=== PATIENT | female | born 1965 | race Asian ===

== ENCOUNTER 2016-11-14 12:12 | Outpatient (CLI) | payer OTHER | END 2016-11-14 12:13 | disposition home or self-care (01) | DX: M43.16 Spondylolisthesis, lumbar region (principal) ==

== ENCOUNTER 2016-12-10 17:07 | Outpatient (CLI) | payer OTHER | END 2016-12-10 17:08 | disposition home or self-care (01) | DX: M47.896 Other spondylosis, lumbar region (principal); M43.16 Spondylolisthesis, lumbar region; M51.86 Other intervertebral disc disorders, lumbar region ==

== ENCOUNTER 2017-04-23 16:04 | Outpatient (CLI) | payer OTHER ==
--- NOTE | 2017-05-01 18:31 | Mammography Report ---
DIGITAL SCREENING MAMMOGRAM: 04/23/2017 CLINICAL INDICATION: A 51-year-old with bilateral implants, history of benign biopsy for screening. COMPARISON: Films from [facility] dated 03/11/2014, 07/08/2013, 12/29/2012, 2012, 07/30/2012, 07/25/2012, 06/07/2012, 05/25/2009. TECHNIQUE: Routine CC and MLO projections were obtained of the breasts. FINDINGS: The breasts again demonstrate heterogeneously dense fibroglandular parenchyma bilaterally. Postbiopsy changes in the right upper outer central breast are stable, with marker in place. Punct ate, typically benign calcifications are present bilaterally. Bilateral saline implants are stable. No suspicious masses, clustered microcalcifications, or regions of architectural distortion are iden tified. IMPRESSION: BENIGN FINDINGS. RECOMMENDATION: Routine annual screening unless otherwise clinically indicated. BI-RADS category 2, benign findings. STANDARD QUALIFYING STATEMENTS 1. This examination was reviewed with the aid of Computer-Aided Detection (CAD). 2. A negative or benign imaging report should not delay biopsy if clinically suspicious findings are present. Consider surgical consultation if warranted. More than 5% of cancers are not identified by i maging. 3. Dense breasts may obscure an underlying neoplasm. JOB #: [id number] EXT JOB #:[id number]
== END 2017-04-23 16:05 | disposition home or self-care (01) ==
LOC: DI.N 16:04
PROVIDERS: ATTEND Family Medicine
DX: Z12.31 Encounter for screening mammogram for malignant neoplasm of breast (principal); Z98.82 Breast implant status
CPT/HCPCS: 77067

== ENCOUNTER 2017-05-15 15:24 | Outpatient (CLI) | payer OTHER | END 2017-05-15 15:25 | disposition critical access hospital (66) | LOC: EMS 15:24 | PROVIDERS: ATTEND Surgery | DX: R55 Syncope and collapse (principal) | CPT/HCPCS: A0425; A0427 ==

== ENCOUNTER 2017-05-15 15:50 | Emergency (ER) | payer OTHER ==
--- NOTE | 2017-05-15 16:26 | ED Physician Documentation ---
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 She did become lightheaded dizzy nauseous and diaphoretic. Her blood sugar was 87 at the time medics arrived and they did find her to have a low-grade fever. She was stung by a bee yesterday in the under the left armpit and she has some swelling associated with that. She does note that today she has had 2 things to drink a warm smoothly and 6 ounces of soy milk at lunch and she did not have her usual morning snack as they were involved in a long procedure. The patient states that she was involved in a long procedure again this afternoon and this is when she began to feel ill. She denies feeling ill yesterday and did her usual yoga with her usual stamina. She denies any other recent illness. Review of Systems Constitutional: reports: Fever, Fatigue, Sweats Eyes: denies: Decreased vision Ears: denies: Ear pain Nose: denies: Rhinorrhea / runny nose, Congestion Throat: denies: Sore throat Cardiac: denies: Chest pain / pressure, Palpitations Respiratory: denies: Dyspnea, Cough GI: denies: Abdominal Pain, Nausea, Vomiting, Constipation, Diarrhea : denies: Dysuria, Frequency Skin: denies: Rash Musculoskeletal: reports: Extremity pain, Extremity swelling. denies: Neck pain , Back pain, Joint pain, Joint swelling Neurologic: reports: Near syncope. denies: Generalized weakness, Focal weakness , Numbness PD PAST MEDICAL HISTORY - Present Medications Home Medications: Ambulatory Orders Medication Instructions Recorded Confirmed Amox/Clav 875/125 [Augmentin] 1 each PO Q12H #10 tablet 05/15/17 - Allergies Allergies/Adverse Reactions: Allergies Allergy/AdvReac Type Severity Reaction Status Date / Time aspirin Allergy Unknown Verified 05/15/17 15:59 Penicillins Allergy Unknown Verified 05/15/17 15:59 PD ED PE NORMAL - Vitals Vital signs reviewed: Yes (Bradycardic) - General General: No acute distress, Well developed/nourished - HEENT HEENT: Atraumatic, PERRL, EOMI, Moist mucous membranes, Pharynx benign, Other ( Mild inflammation along the umbo bilaterally) - Neck Neck: Supple, no meningeal sign, No bony TTP - Cardiac Cardiac: RRR, No murmur - Respiratory Respiratory: No respiratory distress, Clear bilaterally - Abdomen Abdomen: Soft, Non tender - Back Back: No CVA TTP, No spinal TTP - Derm Derm: Normal color, Warm and dry, No rash - Extremities Extremities: No deformity, Other (Under the left arm in the axilla is a 3 cm erythematous swollen mass where the patient was stung by a bee.) - Neuro Neuro: No motor deficit, No sensory deficit - Psych Psych: Normal mood, Normal affect Results - Vitals Vitals: Vital Signs - 24 hr 05/15/17 05/15/17 15:55 18:47 Temperature 36.9 C Heart Rate 51 L 70 Respiratory 16 20 Rate Blood Pressure 120/78 122/77 O2 Saturation 98 100 Oxygen O2 Source Room air - EKG (time done) 1605 Rate: Rate (enter#) (60) Rhythm: NSR Ischemia: Normal ST segments, Q waves (anterior ) Compare to prior EKG: Old EKG unavailable Computer interpretation: Agree with computer - Labs Labs: Laboratory Tests 05/15/17 05/15/17 05/15/17 16:50 16:50 16:50 WBC 6.9 RBC 4.05 L Hgb 12.4 Hct 37.5 MCV 92.5 MCH 30.6 MCHC 33.0 RDW 13.8 Plt Count 228 MPV 7.8 L Neut # 3.5 Lymph # 2.6 Pettis # 0.6 Eos # 0.1 Baso # 0.1 Absolute Nucleated RBC 0.00 Nucleated RBC % 0.0 Sodium 139 Potassium 3.6 Chloride 104 Carbon Dioxide 28 Anion Gap 7.0 BUN 13 Creatinine 0.7 Estimated GFR (MDRD) 88 L Glucose 92 Calcium 8.7 Total Bilirubin 0.7 AST 29 ALT 20 Alkaline Phosphatase 30 L Troponin I < 0.04 Total Protein 6.1 L Albumin 3.6 Globulin 2.5 Albumin/Globulin Ratio 1.4 Lipase 31 Urine Color Urine Clarity Urine pH Ur Specific [place] Urine Protein Urine Glucose (UA) Urine Ketones Urine Occult Blood Urine Nitrite Urine Bilirubin Urine Urobilinogen Ur Leukocyte Esterase Ur Microscopic Review Urine Culture Comments 05/15/17 17:46 WBC RBC Hgb Hct MCV MCH MCHC RDW Plt Count MPV Neut # Lymph # [place] # Eos # Baso # Absolute Nucleated RBC Nucleated RBC % Sodium Potassium Chloride Carbon Dioxide Anion Gap BUN Creatinine Estimated GFR (MDRD) Glucose Calcium Total Bilirubin AST ALT Alkaline Phosphatase Troponin I Total Protein Albumin Globulin Albumin/Globulin Ratio Lipase Urine Color YELLOW Urine Clarity CLEAR Urine pH 7.5 Ur Specific [place] 1.010 Urine Protein NEGATIVE Urine Glucose (UA) NEGATIVE Urine Ketones NEGATIVE Urine Occult Blood NEGATIVE Urine Nitrite NEGATIVE Urine Bilirubin NEGATIVE Urine Urobilinogen 0.2 (NORMAL) Ur Leukocyte Esterase NEGATIVE Ur Microscopic Review NOT INDICATED Urine Culture Comments NOT INDICATED - Rads (name of study) 2 view chest Radiology: Prelim report reviewed (Impression: Normal two-view chest radiography.), EMP read indepedently, See rad report Procedures - IVC sono (time) 1620 Bedside IVC sono: IVC measures (cm) (0.90), Dehydration PD MEDICAL DECISION MAKING - ED course Complexity details: reviewed old records, reviewed results, re-evaluated patient , considered differential, d/w patient, d/w family ED course: 51-year-old female with a near syncopal episode appears to have some mild dehydration she does have a lump under her arm where she was stung by a bee that looks like there may be some early infection of involved with that and she did feel warm to the touch on examination. She also has some mild inflammation bilaterally in the TMs. She has had amoxicillin previously and we will put her on a short course of augmentin. Departure - Departure Disposition: 01 Home, Self Care Clinical Impression: Vasovagal near-syncope, Dehydration Local reaction to bee sting Qualifiers: Encounter type: initial encounter Injury intent: accidental or unintentional Qualified Code(s): T63.441A - Toxic effect of venom of bees, accidental ( unintentional), initial encounter Condition: Stable Instructions: ED Dehydration, ED Bite Sting Insect Local Allergic React Follow-Up: KINSEY Clements [Provider Group] Prescriptions: Amox/Clav 875/125 [Augmentin] 1 each PO Q12H #10 tablet
[2017-05-15] MEDS ORDERED: DEXAMETHASONE 10 MG/ML VIAL IVP STA (16:30)
[2017-05-15] MEDS ORDERED: DEXAMETHASONE 10 MG/ML VIAL ONE (16:50)
[2017-05-15] MEDS ORDERED: SODIUM CHLORIDE FLUSH 0.9% 10 ML SYRINGE IVP ONE (16:50)
[2017-05-15 16:58] LABS: BASOPHILS # (AUTO) 0.1 10^3/uL (0.0-0.1); BASOPHILS % (AUTO) 1.4 %; EOSINOPHILS # (AUTO) 0.1 10^3/uL (0.0-0.7); HCT - HEMATOCRIT 37.5 % (37.0-47.0); HGB - HEMOGLOBIN 12.4 g/dL (12.0-16.0); LYMPHOCYTES # (AUTO) 2.6 10^3/uL (1.5-3.5); LYMPHOCYTES % (AUTO) 37.8 %; MEAN CORPUSCULAR HEMOGLOBIN 30.6 pg (27.0-31.0); MEAN CORPUSCULAR VOLUME 92.5 fL (81.0-99.0); MEAN PLATELET VOLUME 7.8 fL (7.9-10.8); MONOCYTES # (AUTO) 0.6 10^3/uL (0.0-1.0); MONOCYTES % (AUTO) 8.1 %; NEUTROPHILS # (AUTO) 3.5 10^3/uL (1.5-6.6); NEUTROPHILS % (AUTO) 50.7 %; RED BLOOD COUNT 4.05 10^6/uL (4.20-5.40); RED CELL DISTRIBUTION WIDTH 13.8 % (12.0-15.0); UNCORRECTED WHITE BLOOD COUNT 6.9 x10^3/uL; WHITE BLOOD COUNT 6.9 x10^3/uL (4.8-10.8)
[2017-05-15 17:12] LABS: ALBUMIN/GLOBULIN RATIO 1.4 (1.0-2.2); BILIRUBIN,TOTAL 0.7 mg/dL (0.2-1.0); CALCIUM 8.7 mg/dL (8.5-10.3); CREATININE 0.7 mg/dL (0.4-1.0); POTASSIUM 3.6 mmol/L (3.5-5.0); TOTAL PROTEIN 6.1 g/dL (6.7-8.2)
--- NOTE | 2017-05-15 17:48 | XRAY Preliminary Report ---
Exam: XR Chest 2 View PA/LAT IMPRESSION: Normal 2-view chest radiography. [facility] SITE ID: [id number]
--- NOTE | 2017-05-15 17:51 | XRAY Report ---
EXAM: CHEST RADIOGRAPHY EXAM DATE: 05/15/2017 04:43 PM. CLINICAL HISTORY: Syncope, fever. COMPARISON: None. TECHNIQUE: 2 views. FINDINGS: Lungs/Pleura: Clear. No effusion or pneumothorax. Mediastinum: Heart and mediastinal contours are unremarkable. Upper lobe vessels not distended. Other: Breast implants. IMPRESSION: Normal 2-view chest radiography. [facility] Referring Provider Line: [phone] SITE ID: [id number]
[2017-05-15 18:36] LABS: BILIRUBIN,URINE NEGATIVE (NEGATIVE); PH,URINE 7.5 PH (5.0-7.5)
[2017-05-15 18:37] LABS: UA CHARGE (STRIP ONLY) YES; UR CULTURE IF IND NOT INDICATED
[2017-05-15 18:47] VITALS: BP 122/77
== END 2017-05-15 19:00 | disposition home or self-care (01) ==
LOC: EDUNIT# → ED 15:50
DX: R55 Syncope and collapse (principal); E86.0 Dehydration; T63.441A Toxic effect of venom of bees, accidental (unintentional), initial encounter
CPT/HCPCS: 36415; 71020; 80053; 81001; 81003; 83690; 84484; 85025; 87086; 93005; 96374; 99284

== ENCOUNTER 2017-05-17 15:33 | Emergency (ER) | payer OTHER ==
--- NOTE | 2017-05-17 17:00 | ED Physician Documentation ---
PD HPI SYNCOPE - Stated complaint Stated Complaint: DIZZY - Chief complaint Chief Complaint: General - History obtained from History obtained from: Patient - History of Present Illness Witnessed: Witnessed Timing - onset: How many hours ago (1) Duration: Minutes Associated symptoms: Nausea / vomiting, Other (she was at work and started feeling lightheaded, no vertigo, felt faint and had to sit down. NO LOC. Had had recent syncope with lightheaded few days ago. Seen in ED and dx with ear infection.). No: Incontinant of urine, Headache, Vision changes, Chest pain, Palpitations, Dyspnea, Abdominal pain Contributing factors: No: Decreased PO intake, Noxious stimulae, Just stood up ( was standing for awhile at work.) Injury occurred: No: Fell, Head injury, Neck injury Similar symptoms before: No diagnosis (just a few days ago, no prior to that) Recently seen: Emergency Dept Review of Systems Constitutional: denies: Fever, Chills Nose: denies: Rhinorrhea / runny nose, Congestion Throat: denies: Sore throat Respiratory: denies: Cough GI: reports: Nausea. denies: Abdominal Pain, Vomiting, Diarrhea : denies: Dysuria, Frequency Skin: denies: Rash Neurologic: reports: Generalized weakness, Near syncope. 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 - Present Medications Home Medications: Ambulatory Orders Medication Instructions Recorded Confirmed Amox/Clav 875/125 [Augmentin] 1 each PO Q12H #10 tablet 05/15/17 05/17/17 - Allergies Allergies/Adverse Reactions: Allergies Allergy/AdvReac Type Severity Reaction Status Date / Time aspirin Allergy Unknown Verified 05/17/17 16:18 Penicillins Allergy Unknown Verified 05/17/17 16:18 - Social History Does the pt smoke?: No Smoking Status: Never smoker Does the pt drink ETOH?: Yes Does the pt have substance abuse?: No PD ED PE NORMAL - Vitals Vital signs reviewed: Yes - General General: Alert and oriented X 3, No acute distress, Well developed/nourished - HEENT HEENT: Atraumatic, Ears normal, Moist mucous membranes, Pharynx benign - Neck Neck: Supple, no meningeal sign, No adenopathy - Cardiac Cardiac: RRR, No murmur - Respiratory Respiratory: Clear bilaterally - Abdomen Abdomen: Soft, Non tender - Derm Derm: Normal color, Warm and dry - Extremities Extremities: No tenderness to palpate, Normal ROM s pain, No edema, No calf tenderness / cord - Neuro Neuro: Alert and oriented X 3, No motor deficit, Normal speech - Psych Psych: Normal mood, Normal affect Results - Vitals Vitals: Oxygen O2 Source Room air - EKG (time done) 17:48 Rate: Rate (enter#) (63) Rhythm: NSR [place]: Normal Intervals: Normal [place] QRS: Normal Ischemia: Normal ST segments. No: ST elevation c/w ischemia, ST depression PD MEDICAL DECISION MAKING - ED course Complexity details: reviewed old records, considered differential (brief episodes of lightheadedness and then feeling okay. Consider heart rhythm and PMD might consider Holter. Otherwise could have had some effect from abx perhaps , though no itching/rash/swelling. Ears look okay and so do not think she needs to continue abx. ), d/w patient Departure - Departure Disposition: 01 Home, Self Care Clinical Impression: Near syncope Condition: Stable Record reviewed to determine appropriate education?: Yes Instructions: ED Near Syncope Unkn Comments: Drink lots of fluids. I would hold off on your antibiotic for now. Tylenol or ibuprofen if needed for pains. Follow-up with your primary care next week as planned. Return if repeated episodes. Discharge Date/Time: 05/17/17 18:35
[2017-05-17 18:37] VITALS: BP 125/86
== END 2017-05-17 18:35 | disposition home or self-care (01) ==
LOC: EDUNIT# → ED 15:33
DX: R55 Syncope and collapse (principal); R94.31 Abnormal electrocardiogram [ECG] [EKG]
CPT/HCPCS: 93005; 99282; 99284

== ENCOUNTER 2017-05-30 07:52 | Outpatient (CLI) | payer OTHER ==
[~2017-05-30 07:52] MED LIST: IOPAMIDOL-300 100 ML VIAL ONE
[2017-05-30] MEDS ORDERED: IOPAMIDOL-300 100 ML VIAL IVP ONE (08:22)
--- NOTE | 2017-05-30 11:06 | CT Report ---
CT BRAIN WITH AND WITHOUT CONTRAST: 05/30/2017 CLINICAL INDICATION: Dizziness, near syncope, family history of cerebral aneurysm. TECHNIQUE: Axial CT images of the brain were obtained prior to and following 100 mL Isovue-300 intra venously. FINDINGS: The ventricles and sulci are normal in size, shape, and configuration. The basilar cister ns are patent. There is no evidence of hemorrhage, mass effect, or midline shift. No abnormal enhan cement is appreciated following contrast administration. The visualized orbital contents and paranas al sinuses are unremarkable. IMPRESSION: NORMAL CT OF THE BRAIN WITH AND WITHOUT CONTRAST. In accordance with CT protocol optimization, one or more of the following dose reduction techniques w ere utilized for this exam: automated exposure control, adjustment of mA and/or KV based on patient size, or use of iterative reconstructive technique. JOB #: [id number] EXT JOB #:[id number]
== END 2017-05-30 07:53 | disposition home or self-care (01) ==
LOC: DI 07:52
PROVIDERS: ATTEND Family Medicine
DX: R42 Dizziness and giddiness (principal); R55 Syncope and collapse; Z82.49 Family history of ischemic heart disease and other diseases of the circulatory system
CPT/HCPCS: 70470; 93306; Q9967

== ENCOUNTER 2017-11-06 15:12 | Emergency (ER) | payer OTHER ==
--- NOTE | 2017-11-06 15:33 | ED Physician Documentation ---
PD HPI WOUND RECHECK - Stated complaint Stated Complaint: POST OP CHECK - Chief complaint Chief Complaint: General - Histroy obtained from History obtained from: Patient - History of Present Illness Location: Abdomen Recently seen: Surgery (patient had a lipoma removed this morning by Dr. Doran and has developed a hematoma since. Dr. Doran meeting patient here in the ED to take care of it. Dr. 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 Medications Home Medications: Ambulatory Orders Medication Instructions Recorded Confirmed Amox/Clav 875/125 [Augmentin] 1 each PO Q12H 3 Days #7 tablet 11/06/17 - Allergies Allergies/Adverse Reactions: Allergies Allergy/AdvReac Type Severity Reaction Status Date / Time aspirin Allergy Unknown Verified 11/06/17 15:32 Penicillins Allergy Unknown Verified 11/06/17 15:32 - Social History Does the pt smoke?: No Smoking Status: Never smoker Does the pt drink ETOH?: Yes Does the pt have substance abuse?: No PD ED PE NORMAL - Vitals Vital signs reviewed: Yes - General General: Alert and oriented X 3, No acute distress, Well developed/nourished, Other (brief evaluation as Dr. Doran doing the main care of the patient. ) - Derm Derm: Normal color, Warm and dry Results - Vitals Vitals: Vital Signs - 24 hr 11/06/17 11/06/17 11/06/17 15:26 16:45 17:45 Temperature 37.3 C Heart Rate 77 60 68 Respiratory 18 16 16 Rate Blood Pressure 122/80 124/70 130/76 O2 Saturation 100 100 99 11/06/17 18:04 Temperature Heart Rate 76 Respiratory 16 Rate Blood Pressure 132/74 H O2 Saturation 97 Oxygen O2 Source Room air PD MEDICAL DECISION MAKING - ED course Complexity details: d/w wardrobe image consultant (Dr. Doran doing the patient care in the ER and I was available to assist if needed. ) Departure - Departure Disposition: 01 Home, Self Care Clinical Impression: Hematoma Post-op bleeding Qualifiers: Surgical complication system/body Area: subcutaneous tissue Procedure type: non -dermatologic Qualified Code(s): L76.22 - Postprocedural hemorrhage of skin and subcutaneous tissue following other procedure Condition: Stable Record reviewed to determine appropriate education?: Yes Prescriptions: Amox/Clav 875/125 [Augmentin] 1 each PO Q12H 3 Days #7 tablet Discharge Date/Time: 11/06/17 18:04
[2017-11-06] MEDS ORDERED: LIDOCAINE 1%-EPI 1:100000 20 ML MDV ONE (16:14)
[2017-11-06] MEDS: MORPHINE 10 MG/ML VIAL IM STA ×2 (16:28→17:20)
[2017-11-06] MEDS ORDERED: MORPHINE 2 MG/ML SYRINGE ONE (16:34)
[2017-11-06] MEDS ORDERED: MORPHINE 10 MG/ML VIAL IM STA (17:16)
[2017-11-06] MEDS ORDERED: ONDANSETRON ODT 4 MG TABLET TL STA (17:33)
--- NOTE | 2017-11-06 17:46 | PROVIDER PROGRESS NOTE ---
Subjective - Other Other Information/Narrative: called to see patient for hematoma after removal of lipoma in the office today. Upon evaluation she was noted to have a large hematoma. I opened her incision at the bedside and drained a large hematoma. The cavity was profusely irrigated and repacked with gauze and pressure held. Removing the packing no active bleeding was noted but a small area on the muscle bed was slightly oozing and this was controlled with electrocautery. I again irrigated, packed the wound, held pressure for 5 minutes and re-examined the wound bed. No bleeding was seen. The wound was then irrigated with betadine and closed with 3-0 nylon. A pressure dressing was applied. She was discharged home with wound care instructions and a prescription for Augmentin for three days. I will see her back in the office in 1 week. Objective - Patient Data Vital Signs: Vital Signs x48h Temp Pulse Resp BP Pulse Ox 11/06/17 15:26 37.3 C 77 18 122/80 100 Weight: Weight 11/04/17 11/05/17 11/06/17 23:59 23:59 23:59 Weight (kg) 54.431 kg
[2017-11-06 18:07] VITALS: BP 132/74
== END 2017-11-06 18:04 | disposition home or self-care (01) ==
LOC: ED 15:12
DX: L76.32 Postprocedural hematoma of skin and subcutaneous tissue following other procedure (principal); L76.22 Postprocedural hemorrhage of skin and subcutaneous tissue following other procedure
CPT/HCPCS: 10140; 96372; 99283; J2270; Q0162

== ENCOUNTER 2017-11-07 19:34 | Emergency (ER) | payer OTHER ==
[2017-11-07 19:46] VITALS: BP 143/80
[2017-11-07] MEDS ORDERED: TRANEXAMIC ACID 1,000 MG in SODIUM CHLORIDE 0.9% 100ML 100 ML IV ONE (20:24)
--- NOTE | 2017-11-07 20:32 | ED Physician Documentation ---
PD HPI ABD PAIN - Stated complaint Stated Complaint: ABD PX/POST SURG - Chief complaint Chief Complaint: Abd Pain - History obtained from History obtained from: Patient - History of Present Illness Timing - onset: Other (She had a lipoma removal in the office yesterday. Yesterday evening she was here with subcutaneous hematoma the surgeon evacuated. It really occurred a bit today. 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 - Present Medications Home Medications: Ambulatory Orders Medication Instructions Recorded Confirmed Amox/Clav 875/125 [Augmentin] 1 each PO Q12H 3 Days #7 tablet 11/06/17 - Allergies Allergies/Adverse Reactions: Allergies Allergy/AdvReac Type Severity Reaction Status Date / Time aspirin Allergy Unknown Verified 11/06/17 15:32 Penicillins Allergy Unknown Verified 11/06/17 15:32 - Social History Does the pt smoke?: No Smoking Status: Never smoker Does the pt drink ETOH?: Yes Does the pt have substance abuse?: No PD ED PE NORMAL - Vitals Vital signs reviewed: Yes - General General: Alert and oriented X 3, No acute distress - Abdomen Abdomen: Soft, Other (There is a lot of bruising and ecchymosis surrounding a surgical incision in the right lower quadrant that is clean dry and intact with sutures and placed. The ecchymosis tracks down into the upper thigh. Bedside ultrasound demonstrates about a 4 x 5 x 2 cm hematoma under this.) - Back Back: No CVA TTP, No spinal TTP Results - Vitals Vitals: Vital Signs - 24 hr 11/07/17 19:40 Temperature 36.8 C Heart Rate 67 Respiratory 14 Rate Blood Pressure 143/80 H O2 Saturation 100 Oxygen O2 Source Room air PD MEDICAL DECISION MAKING - ED course ED course: Case was discussed by phone with her surgeon, Dr. Doran who recommended removing the middle suture and evacuating the hematoma again and leaving it open. The middle suture was removed and quite a bit of old but unclotted blood was removed and a few small clots. The cavity was flushed with a gram of tranexamic acid and then left open. Departure - Departure Disposition: Home, Self Care Clinical Impression: Hematoma Post-op bleeding Qualifiers: Surgical complication system/body Area: subcutaneous tissue Procedure type: non -dermatologic Qualified Code(s): L76.22 - Postprocedural hemorrhage of skin and subcutaneous tissue following other procedure Condition: Good Record reviewed to determine appropriate education?: Yes Comments: Continue the antibiotics. Call Dr. Doran tomorrow and discuss how you are doing. Return if worse.
== END 2017-11-07 20:38 | disposition home or self-care (01) ==
LOC: ED 19:34
DX: L76.32 Postprocedural hematoma of skin and subcutaneous tissue following other procedure (principal); L76.22 Postprocedural hemorrhage of skin and subcutaneous tissue following other procedure
CPT/HCPCS: 96374; 99283

== ENCOUNTER 2017-11-12 14:20 | Outpatient (CLI) | payer OTHER ==
[2017-11-12 14:58] LABS: BASOPHILS # (AUTO) 0.1 10^3/uL (0.0-0.1); BASOPHILS % (AUTO) 0.7 %; EOSINOPHILS # (AUTO) 0.2 10^3/uL (0.0-0.7); EOSINOPHILS % (AUTO) 2.6 %; HGB - HEMOGLOBIN 11.9 g/dL (12.0-16.0); LYMPHOCYTES # (AUTO) 2.3 10^3/uL (1.5-3.5); LYMPHOCYTES % (AUTO) 25.4 %; MEAN CORPUSCULAR VOLUME 91.2 fL (81.0-99.0); MEAN PLATELET VOLUME 7.9 fL (7.9-10.8); MONOCYTES # (AUTO) 0.5 10^3/uL (0.0-1.0); MONOCYTES % (AUTO) 5.5 %; NEUTROPHILS # (AUTO) 5.9 10^3/uL (1.5-6.6); NEUTROPHILS % (AUTO) 65.8 %; PLT - PLATELET COUNT 269 10^3/uL (130-450); RED BLOOD COUNT 3.85 10^6/uL (4.20-5.40); RED CELL DISTRIBUTION WIDTH 13.9 % (12.0-15.0)
[2017-11-12 15:05] LABS: INR 0.9 (0.8-1.2); PT - PROTHROMBIN TIME 10.3 secs (9.9-12.6)
== END 2017-11-12 14:21 | disposition home or self-care (01) ==
LOC: LAB 14:20
PROVIDERS: ATTEND Surgery
DX: R58 Hemorrhage, not elsewhere classified (principal); T81.9XXA Unspecified complication of procedure, initial encounter
CPT/HCPCS: 36415; 85025; 85610; 85730

== ENCOUNTER 2018-02-18 13:36 | Emergency (ER) | payer OTHER ==
[2018-02-18 13:54] VITALS: BP 146/93
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
== END 2018-02-18 15:49 | disposition home or self-care (01) ==
LOC: ED 13:36
DX: S16.1XXA Strain of muscle, fascia and tendon at neck level, initial encounter (principal); V89.2XXA Person injured in unspecified motor-vehicle accident, traffic, initial encounter
CPT/HCPCS: 70450; 72125; 93005; 99283; 99284

== ENCOUNTER 2018-05-12 15:58 | Outpatient (CLI) | payer OTHER ==
--- NOTE | 2018-05-13 13:09 | Mammography Report ---
Reason: SCREENING MAMMO Procedure Date: 05/12/2018 Accession Number: [id number] / [id number] Procedure: MGN - Screening Mammo Dig w/Implants CPT Code: FULL RESULT: EXAM: Screening Mammo Dig w/Implants DATE: 05/12/2018 4:28 PM CLINICAL HISTORY: 52-year-old female with history of breast augmentation. TECHNIQUE: Bilateral CC implant displaced and MLO implant displaced as well as bilateral CC and bilateral MLO views were obtained. COMPARISON: 04/23/2017, 03/11/2014, 07/08/2013, 12/29/2012. FINDINGS: The breasts demonstrate extremely dense parenchyma bilaterally, limiting the sensitivity of mammography. A biopsy clip is seen in the right breast. Saline implants bilaterally are unchanged. Clustered calcifications in the region of the right biopsy clip are stable, pathologically proven benign. Coarse typically benign calcifications are seen in the left breast. No suspicious masses, clustered microcalcifications, or regions of architectural distortion are identified. IMPRESSION: Benign findings RECOMMENDATION: Routine annual screening unless otherwise clinically indicated. BIRADS CATEGORY 2: Benign findings STANDARD QUALIFYING STATEMENTS: 1. This examination was not reviewed with the aid of Computer-Aided Detection (CAD). 2. A negative or benign imaging report should not delay biopsy if clinically suspicious findings are present. Consider surgical consultation if warrented. More than 5% of cancers are not identified by imaging. 3. Dense breasts may obscure an underlying neoplasm.
== END 2018-05-12 15:59 | disposition home or self-care (01) ==
LOC: DI.N 15:58
DX: Z12.31 Encounter for screening mammogram for malignant neoplasm of breast (principal); Z98.82 Breast implant status
CPT/HCPCS: 77067

== ENCOUNTER 2021-02-23 16:12 | Outpatient (CLI) | payer BC ==
--- NOTE | 2021-02-23 16:44 | XRAY Report ---
PROCEDURE: Chest 2 View X-Ray INDICATIONS: UNSPECIFIC REACTION TO TB SKIN TEST TECHNIQUE: 2 view(s) of the chest. COMPARISON: 05/15/2017 chest radiograph. FINDINGS: Surgical changes and devices: None. Lungs and pleura: No pleural effusions or pneumothorax. Lungs are clear. Mediastinum: Mediastinal contours are normal. Heart size is normal. Bones and chest wall: No suspicious bony abnormalities. Soft tissues appear unremarkable. IMPRESSION: No acute cardiopulmonary process demonstrated radiographically. Reviewed by: Chino De MD on 02/23/2021 4:43 PM PDT Approved by: Chino De MD on 02/23/2021 4:43 PM PDT Station ID: [id number]
== END 2021-02-23 16:13 | disposition home or self-care (01) ==
LOC: DI.N 16:12
PROVIDERS: ATTEND Physician Assistant
DX: R76.11 Nonspecific reaction to tuberculin skin test without active tuberculosis (principal)